=== PATIENT | male | born 1995 | race Caucasian/White ===

== ENCOUNTER 2022-10-17 02:32 | Emergency (ER) | payer OTHER, SELFPAY ==
[2022-10-17 02:36] VITALS: BP 130/97; PULSE 76; RESP 16; TEMP 36.4; O2SAT 100
--- NOTE | 2022-10-17 03:29 | ED.GENADULT ---
HPI - General Adult General Chief complaint: Unspecified Stated complaint: Nausea/Vomiting History of Present Illness HPI narrative: Healthy 27yo man presents with nausea and dizziness and feeling faint after drinking a beer and two gin and tonics and going out to dinner with friends. No one else got sick. he feels much better now. Related Data Home Medications Medication Instructions Recorded Confirmed No Home Medications 10/17/22 10/17/22 Allergies Allergy/AdvReac Type Severity Reaction Status Date / Time sulfamethoxazole Allergy Unknown Verified 10/17/22 02:35 [From Bactrim] trimethoprim [From Bactrim] Allergy Unknown Verified 10/17/22 02:35 Review of Systems Review of Systems: All systems reviewed & are unremarkable except as noted in HPI and below Constitutional: Constitutional: Denies chills and Denies fever(s) ENT: Denies vertigo Cardiovascular: Cardiovascular: Denies chest pain Respiratory: Respiratory: Denies dyspnea Exam Const: General: healthy appearing and no acute distress Nutritional Appearance: well nourished Orientation/consciousness: patient oriented x3 HENMT: Other: atraumatic Eyes: Conjunctivae: conjunctivae normal Neck: Other: supple Resp: Effort & Inspection: normal respiratory effort and not labored Cardio: Rate: regular rate Rhythm: regular rhythm GI: Inspection: non-distended GI Palp: Yes Soft to palpation and No Tenderness to palpation present (GI) Skin: General skin exam: normal color, no jaundice and no pallor Neuro: General: patient oriented x3 and moves all extremities Course Vital Signs Vital signs: Vital Signs Temperature 36.4 C 10/17/22 02:36 Pulse Rate 76 10/17/22 02:36 Respiratory Rate 16 10/17/22 02:36 Blood Pressure 130/97 H 10/17/22 02:36 Pulse Oximetry 100 10/17/22 02:36 Temperature 36.4 C 10/17/22 02:36 Pulse Rate 76 10/17/22 02:36 Respiratory Rate 16 10/17/22 02:36 Blood Pressure 130/97 H 10/17/22 02:36 Pulse Oximetry 100 10/17/22 02:36 Medical Decision Making [facility] Narrative Medical decision making narrative: dizziness, malaise, fatigue, in the setting of alcohol consumption DDx ethanol toxicity, dehydration, viral syndrome Vital Signs Vital Signs: Vital Signs Temperature 36.4 C 10/17/22 02:36 Pulse Rate 76 10/17/22 02:36 Respiratory Rate 16 10/17/22 02:36 Blood Pressure 130/97 H 10/17/22 02:36 Pulse Oximetry 100 10/17/22 02:36 Temperature 36.4 C 10/17/22 02:36 Pulse Rate 76 10/17/22 02:36 Respiratory Rate 16 10/17/22 02:36 Blood Pressure 130/97 H 10/17/22 02:36 Pulse Oximetry 100 10/17/22 02:36 Lab Data Lab results reviewed: Yes I reviewed the patient's lab results. Discharge Plan Discharge Clinical Impression: Alcohol intoxication delirium Patient Disposition: Home, Self-Care Condition: Stable Additional Instructions: Your symptoms appear to be from alcohol toxicity. You blood alcohol level at the time your blood was drawn was 192. At that time, you had already been in the ED for an hour, so your peak blood alcohol was much higher. You seem to have drunk quite a bit more than you let on. This explains all of your symptoms. For reference, the legal limit to drive is 80. Prescriptions: No Action No Home Medications Follow-up/Referrals: UNKNOWN,DOCTOR [Primary Care Provider] - Time of Disposition: 05:32
[2022-10-17 03:37] LABS: Basophils Absolute Auto 0.03 K/mm3 (0.00-0.10); Basophils Percent Auto 0.3 % (0.0-1.0); Eosinophils Absolute Auto 0.02 K/mm3 (0.02-0.50); Eosinophils Percent Auto 0.2 % (1.0-6.0); Hematocrit 42.9 % (40.0-54.0); Hemoglobin 15.2 g/dL (14.0-18.0); Immature Granulocyte Absolute 0.04 K/mm3 (0.00-0.00); Immature Granulocyte Percent A 0.5 % (0.0-0.0); Lymphocytes Absolute Auto 1.79 K/mm3 (1.10-4.50); Lymphocytes Percent Auto 20.7 % (18.0-42.0); Mean Corpuscular HGB Conc 35.4 g/dL (32.0-36.0); Mean Corpuscular Volume 84.6 fL (78.0-102.0); Mean Platelet Volume 10.3 fl (8.7-11.0); Monocytes Absolute Auto 0.48 K/mm3 (0.10-0.90); Monocytes Percent Auto 5.5 % (2.0-11.0); Neutrophils Absolute Auto 6.3 K/mm3 (1.7-7.2); Neutrophils Percent Auto 72.8 % (50.0-70.0); Platelet Count Result 192 K/mm3 (150-420); Red Blood Count 5.07 M/mm3 (4.70-6.10); White Blood Count 8.7 K/mm3 (4.8-10.8)
[2022-10-17] MEDS: ONDANSETRON INJ 4 MG/2 ML VIAL IV PUSH (03:39)
[2022-10-17] MEDS: diphenhydrAMINE HCl INJ 50 MG/ML VIAL IV PUSH (03:39)
[2022-10-17] MEDS: LACTATED RINGERS 1,000 ML 999 ML IV CONT (03:39)
[2022-10-17] MEDS: SODIUM CHLORIDE 0.9% IV 1,000 ML 999 ML IV CONT (03:39)
[2022-10-17 03:51] LABS: Alanine Aminotransferase 30 U/L (16-63); Albumin Level 4.7 g/dL (3.4-5.0); Alkaline Phosphatase 49 U/L (46-116); Anion Gap 10 mmol/L (8-16); Aspartate Amino Transferase 27 U/L (15-37); Bilirubin,Total 0.4 mg/dL (0.00-1.00); Blood Urea Nitrogen 17 mg/dL (7-18); Calcium 8.7 mg/dL (8.5-10.1); Carbon Dioxide 30 mmol/L (21-32); Chloride 105 mmol/L (98-108); Estimated CRCL calculation 78 ml/min; Estimated Glomerular Filt Rate > 60; Ethanol 192 mg/dL (0-6); Glucose 100 mg/dL (70-99); Osmolality Calculated 301 mOsm/kg (285-295); Sodium 145 mmol/L (136-145); Total Protein 8.1 g/dL (6.4-8.2)
[2022-10-17 04:38] VITALS: BP 120/82; PULSE 72; RESP 16; O2SAT 97
== END 2022-10-17 05:43 | disposition home or self-care (01) ==
PROVIDERS: Emergency Provider Emergency Medicine
DX: F10.921 Alcohol use, unspecified with intoxication delirium (principal); Y90.9 Presence of alcohol in blood, level not specified
CPT/HCPCS: 36415; 80053; 80307; 85025; 96361; 96374; 96375; 99284; J1200; J2405; J7030; J7120